=== PATIENT | male | born 1945 | race Caucasian/White ===

== ENCOUNTER → 2020-09-22 | Outpatient (CLI) | payer MEDICARE, OTHER | LOC: RAD 08:24 | PROC: BQ31YZZ Magnetic Resonance Imaging (MRI) of Left Hip using Other Contrast (ICD-10-PCS; principal; 2020-09-22) | DX: M25.552 Pain in left hip (principal) | CPT/HCPCS: 36415; 73722; 82565; A9577; Q9962 ==